=== PATIENT | male | born 1990 | race American Indian/Alaskan Native ===

== ENCOUNTER 2016-11-02 18:52 | Emergency (ER) | payer MEDICARE ==
--- NOTE | 2016-11-02 21:12 | Emergency Department Report ---
- General Chief complaint: Skin/Abscess/Foreign Body Stated complaint: SORE THROAT/ABSCESS ON RT LEG Time Seen by Provider: 11/02/16 21:11 Source: patient Mode of arrival: Ambulatory Limitations: No Limitations - History of Present Illness Initial comments: Patient reports several abscesses on his right inner thigh and sore throat that started three days ago MD complaint: rash, other (sore throat) Onset/Timin -: days(s) Tetanus Up to Date: yes Location: [facility] Severity: moderate Severity scale (0 -10): 7 Quality: aching Consistency: constant Improves with: none Worsens with: movement Context: other (unknown) Associated symptoms: denies other symptoms, itching Treatments Prior to Arrival: none - Related Data Previous Rx's Medication Instructions Recorded Last Taken Type Ibuprofen [Motrin 800 MG tab] 800 mg PO Q8HR PRN #30 tablet 11/02/16 Unknown Rx Sulfamethoxazole/Trimethoprim 1 each PO BID #14 tablet 11/02/16 Unknown Rx [Bactrim DS TAB] predniSONE [Deltasone] 20 mg PO BID #10 tablet 11/02/16 Unknown Rx Allergies Allergy/AdvReac Type Severity Reaction Status Date / Time No Known Allergies Allergy Unverified 11/02/16 19:21 Abscess Boil HPI - HPI Chief Complaint: Skin/Abscess/Foreign Body Stated Complaint: SORE THROAT/ABSCESS ON RT LEG Home Medications: Previous Rx's Medication Instructions Recorded Last Taken Type Ibuprofen [Motrin 800 MG tab] 800 mg PO Q8HR PRN #30 tablet 11/02/16 Unknown Rx Sulfamethoxazole/Trimethoprim 1 each PO BID #14 tablet 11/02/16 Unknown Rx [Bactrim DS TAB] predniSONE [Deltasone] 20 mg PO BID #10 tablet 11/02/16 Unknown Rx Allergies/Adverse Reactions: Allergies Allergy/AdvReac Type Severity Reaction Status Date / Time No Known Allergies Allergy Unverified 11/02/16 19:21 ED Review of Systems ROS: Stated complaint: SORE THROAT/ABSCESS ON RT LEG Other details as noted in HPI Constitutional: denies: chills, diaphoresis, fever, malaise, weakness Eyes: denies: eye pain, eye discharge, vision change ENT: throat pain. denies: ear pain, dental pain, hearing loss, epistaxis, congestion Respiratory: denies: cough, orthopnea, shortness of breath, SOB with exertion, SOB at rest, stridor, wheezing Cardiovascular: denies: chest pain, palpitations, dyspnea on exertion, orthopnea , edema Gastrointestinal: denies: abdominal pain, nausea, vomiting, diarrhea, constipation Musculoskeletal: denies: back pain, joint swelling, arthralgia Skin: rash (right inner thigh) Neurological: denies: headache, weakness, numbness, paresthesias, confusion Psychiatric: denies: anxiety, depression ED Past Medical Hx - Past Medical History Previous Medical History?: Yes Hx Psychiatric Treatment: Yes (paranoid schizophrenia) - Social History Smoking Status: Current Every Day Smoker - Medications Home Medications: Home Medications Medication Instructions Recorded Confirmed Last Taken Type Ibuprofen [Motrin 800 MG tab] 800 mg PO Q8HR PRN #30 tablet 11/02/16 Unknown Rx Sulfamethoxazole/Trimethoprim 1 each PO BID #14 tablet 11/02/16 Unknown Rx [Bactrim DS TAB] predniSONE [Deltasone] 20 mg PO BID #10 tablet 11/02/16 Unknown Rx ED Physical Exam - General Limitations: No Limitations General appearance: alert, in no apparent distress - Head Head exam: Present: atraumatic, normocephalic, normal inspection - Eye Eye exam: Present: normal appearance Pupils: Present: normal accommodation - ENT ENT exam: Present: normal exam, normal orophraynx, mucous membranes moist, TM's normal bilaterally, normal external ear exam. Absent: mucous membranes dry - Expanded ENT Exam Expanded Ear exam: Present: normal external inspection. Absent: auricular hematoma, auricular trauma Mouth exam: Present: normal external inspection, tongue normal. Absent: drooling, trismus, muffled voice, tongue elevation, laceration Teeth exam: Present: normal inspection. Absent: dental caries, fractured tooth #, dental tenderness # Throat exam: Positive: normal inspection. Negative: tonsillar erythema, tonsillomegaly, tonsillar exudate, R peritonsillar mass, L peritonsillar mass - Neck Neck exam: Present: normal inspection, full ROM, lymphadenopathy (bilateral superficial soft cervical). Absent: tenderness, meningismus, thyromegaly - Respiratory Respiratory exam: Present: normal lung sounds bilaterally. Absent: respiratory distress, wheezes, rales, rhonchi, stridor, chest wall tenderness, accessory muscle use, decreased breath sounds, prolonged expiratory - Cardiovascular Cardiovascular Exam: Present: tachycardia, normal heart sounds. Absent: systolic murmur, diastolic murmur, rubs, gallop - Extremities Exam Extremities exam: Present: normal inspection, full ROM, normal capillary refill. Absent: tenderness, pedal edema, joint swelling - Neurological Exam Neurological exam: Present: alert, oriented X3, CN II-XII intact, normal gait, reflexes normal. Absent: motor sensory deficit - Skin Skin exam: Present: warm, normal color, erythema (right inner thigh with no fluctuate or drainage) ED Course Vital Signs 11/02/16 11/02/16 19:24 22:17 Temperature 99.0 F Pulse Rate 107 H 93 H Respiratory 20 18 Rate Blood Pressure 132/83 Blood Pressure 137/81 [Left] O2 Sat by Pulse 100 100 Oximetry - Reevaluation(s) Reevaluation #1: 11/02/16 21:46 laboratory study ordered ED Medical Decision Making - Lab Data Microbiology 11/02/16 21:10 Group A Streptococcus Rapid Screen - Final Throat Negative Vital Signs 11/02/16 11/02/16 19:24 22:17 Temperature 99.0 F Pulse Rate 107 H 93 H Respiratory 20 18 Rate Blood Pressure 132/83 Blood Pressure 137/81 [Left] O2 Sat by Pulse 100 100 Oximetry - Medical Decision Making During the course of ED, analgesic and laboratory study were ordered. The patient was sent home with prescription for Bactrim DS, Prednisone and Ibuprofen , instructed to do warm bath soaks three times a day, he verbalized understanding - Differential Diagnosis Cellulitis, Strep Throat, Fever Critical care attestation.: If time is entered above; I have spent that time in minutes in the direct care of this critically ill patient, excluding procedure time. ED Disposition Clinical Impression: Cellulitis Qualifiers: Site of cellulitis: extremity Site of cellulitis of extremity: lower extremity Laterality: right Qualified Code(s): L03.115 - Cellulitis of right lower limb Pharyngitis Qualifiers: Pharyngitis/tonsillitis etiology: unspecified etiology Qualified Code(s): J02.9 - Acute pharyngitis, unspecified Disposition: TO HOME OR SELFCARE Is pt being admited?: No Does the pt Need Aspirin: No Condition: Stable Instructions: Cellulitis (ED), Pharyngitis (ED) Additional Instructions: Take medication as directed. Do warm bath soaks three times a day. Follow up with the selective referral given at discharge Prescriptions: Ibuprofen [Motrin 800 MG tab] 800 mg PO Q8HR PRN #30 tablet PRN Reason: Pain predniSONE [Deltasone] 20 mg PO BID #10 tablet Sulfamethoxazole/Trimethoprim [Bactrim DS TAB] 1 each PO BID #14 tablet Referrals: PRIMARY CARE, [Primary Care Provider] - 3-5 Days [facility] [Outside] - 3-5 Days Forms: Work/School Release Form(ED) Time of Disposition: 22:14
[2016-11-02] MEDS ORDERED: TORADOL IM ONE (21:55)
[2016-11-02 22:42] VITALS: BP 137/81
== END 2016-11-02 22:17 | disposition home or self-care (01) ==
LOC: ED 18:52
DX: L03.115 Cellulitis of right lower limb (principal); J02.9 Acute pharyngitis, unspecified; F20.0 Paranoid schizophrenia; F17.200 Nicotine dependence, unspecified, uncomplicated
CPT/HCPCS: 87116; 87430; 96372; 99282; J1885

== ENCOUNTER 2018-07-04 06:52 | Emergency (ER) | payer MEDICARE ==
--- NOTE | 2018-07-04 08:12 | Emergency Department Report ---
ED Lower Extremity HPI - General Chief Complaint: Extremity Injury, Lower Stated Complaint: FALL/ L LEG INJURY Time Seen by Provider: 07/04/18 08:07 Source: patient Mode of arrival: Ambulatory Limitations: No Limitations - History of Present Illness MD Complaint: leg injury -: Last night Injury: Leg: Left Type of Injury: blunt Place: home Severity: moderate Worsens With: weight bearing Context: fall Associated Symptoms: swelling, able to partially bear weight. denies: numbness, tingling, unable to bear weight, ambulatory - Related Data Previous Rx's Medication Instructions Recorded Last Taken Type Ibuprofen [Motrin 800 MG tab] 800 mg PO Q8HR PRN #30 tablet 11/02/16 Unknown Rx Sulfamethoxazole/Trimethoprim 1 each PO BID #14 tablet 11/02/16 Unknown Rx [Bactrim DS TAB] predniSONE [Deltasone] 20 mg PO BID #10 tablet 11/02/16 Unknown Rx Allergies Allergy/AdvReac Type Severity Reaction Status Date / Time No Known Allergies Allergy Verified 07/04/18 07:19 ED Review of Systems ROS: Stated complaint: FALL/ L LEG INJURY Other details as noted in HPI Comment: All other systems reviewed and negative Constitutional: denies: chills, fever Respiratory: denies: cough, shortness of breath, SOB with exertion Cardiovascular: denies: chest pain, palpitations Gastrointestinal: denies: abdominal pain, nausea Neurological: denies: headache, weakness, numbness, paresthesias, confusion, abnormal gait ED Past Medical Hx - Past Medical History Hx Psychiatric Treatment: Yes (paranoid schizophrenia) - Surgical History Past Surgical History?: No - Social History Smoking Status: Never Smoker Substance Use Type: None - Medications Home Medications: Home Medications Medication Instructions Recorded Confirmed Last Taken Type Ibuprofen [Motrin 800 MG tab] 800 mg PO Q8HR PRN #30 tablet 11/02/16 Unknown Rx Sulfamethoxazole/Trimethoprim 1 each PO BID #14 tablet 11/02/16 Unknown Rx [Bactrim DS TAB] predniSONE [Deltasone] 20 mg PO BID #10 tablet 11/02/16 Unknown Rx ED Physical Exam - General Limitations: No Limitations General appearance: alert, in no apparent distress - Head Head exam: Present: atraumatic, normocephalic, normal inspection - Eye Eye exam: Present: normal appearance - ENT ENT exam: Present: normal exam, normal orophraynx - Neck Neck exam: Present: normal inspection, full ROM. Absent: tenderness, meningismus - Respiratory Respiratory exam: Present: normal lung sounds bilaterally - Cardiovascular Cardiovascular Exam: Present: regular rate, normal rhythm, normal heart sounds - GI/Abdominal GI/Abdominal exam: Present: soft. Absent: distended, tenderness, guarding, rebound - Expanded Lower Extremity Exam Left Lower Leg exam: Present: tenderness, swelling. Absent: abrasion, laceration, ecchymosis, deformity, crepidus, dislocation, erythema, palpable cord ED Course Vital Signs 07/04/18 06:55 Temperature 98.8 F Pulse Rate 106 H Respiratory 18 Rate Blood Pressure 144/94 [Left] O2 Sat by Pulse 97 Oximetry ED Lower Extremity MDM - Radiology Data Radiology results: image reviewed interpreted by me: Left tibia and fibula x-ray is unremarkable. Critical care attestation.: If time is entered above; I have spent that time in minutes in the direct care of this critically ill patient, excluding procedure time. ED Disposition Clinical Impression: Contusion of left leg Disposition: DC-01 TO HOME OR SELFCARE Is pt being admited?: No Condition: Stable Instructions: Contusion in Adults (ED) Referrals: [facility] [Provider Group] - 3-5 Days
--- NOTE | 2018-07-04 08:55 | XRay Report ---
FINAL REPORT EXAM: XR TIBIA FIBULA 2V LT HISTORY: leg injury COMPARISONS: None. FINDINGS: AP and lateral views left tib fib No bone lesion, periosteal reaction, or fracture. No deformity or gross malalignment. Imaged joint sp aces are grossly unremarkable. IMPRESSION: No fracture.
[2018-07-04 09:35] VITALS: BP 112/74
== END 2018-07-04 09:14 | disposition home or self-care (01) ==
LOC: ED 06:52
DX: S80.12XA Contusion of left lower leg, initial encounter (principal); W18.30XA Fall on same level, unspecified, initial encounter; Y93.89 Activity, other specified; Y92.098 Other place in other non-institutional residence as the place of occurrence of the external cause; Y99.8 Other external cause status
CPT/HCPCS: 99283